=== PATIENT | female | born 1965 | race African-American/Black ===

== ENCOUNTER 2020-08-16 05:01 | Day surgery (SDC) | payer BC ==
[2020-08-13 14:29] VITALS: BMI 51.2
[2020-08-16] MEDS ORDERED: MIDAZOLAM HCL 2 MG/2 ML SINGLE DOSE VIAL ONE (13:19)
[2020-08-16] MEDS ORDERED: LIDOCAINE HCL 1%, 10 MG/ML (20ML VIAL) ONE (13:38)
[2020-08-16] MEDS ORDERED: LIDOCAINE HCL 1% EPINEPHRINE 1:200,000 30 ML VIAL (PF) ONE (13:38)
[2020-08-16] MEDS ORDERED: BUPIVACAINE HCL 100 ML ONE (13:38)
[2020-08-16] MEDS ORDERED: LIDOCAINE 1%/EPI 1:100000 (20 ML MULTI DOSE VIAL) IJ ONE (14:05)
[2020-08-16] MEDS ORDERED: BUPIVACAINE HCL/PF 0.5% (5MG/ML) 10 ML VIAL IJ ONE (14:05)
[2020-08-16] MEDS ORDERED: ONDANSETRON 4 MG/2 ML VIAL ONE (14:42)
[2020-08-16] MEDS ORDERED: LIDOCAINE HCL/PF 2% SDV 5ML VIAL ONE (14:43)
[2020-08-16 17:24] VITALS: TEMP 97.8
[2020-08-16 17:35] VITALS: BP 130/60; PULSE 72
== END 2020-08-16 16:10 | disposition home or self-care (01) ==
LOC: JASU-SURG 05:01
PROVIDERS: ATTEND Podiatrist Foot Surgery
PROC: 0YH Anatomical Regions, Lower Extremities, Insertion (ICD-10-PCS; 2020-08-16)
PROC: 3E013GC Introduction of Other Therapeutic Substance into Subcutaneous Tissue, Percutaneous Approach (ICD-10-PCS; principal; 2020-08-16 13:30)
DX: M76.821 Posterior tibial tendinitis, right leg (principal)
CPT/HCPCS: 0232T; 20999